=== PATIENT | female | born 1985 | race Caucasian/White ===

== ENCOUNTER 2019-12-17 09:42 | Emergency (ER) | payer OTHER ==
[~2019-12-17] VITALS: Ht 162.6 cm; Wt 74.8 kg
[2019-12-17 10:20] VITALS: BP_SYST 128
--- NOTE | 2019-12-17 10:30 | NUR ---
Patient to ER bed 6 to gown for evaluation. Side rails up.
[2019-12-17] MEDS ORDERED: NACL 0.9% 1,000 ML IV ONE (10:46)
--- NOTE | 2019-12-17 10:48 | NUR ---
Dr. Vásquez at bedside for evaluation
--- NOTE | 2019-12-17 10:50 | NUR ---
Patient presents to ER C/O abdominal pain. Patient A&Ox4, skin pink and warm, afebrile, ambulatory to ER, pain 9/10, nausea, denies V/D. Patient states she has had cold with cough x3 days, abdominal pain with nausea & diarrhea since last night. Pt seen in UC dx: bronchitis
[2019-12-17] MEDS ORDERED: KETOROLAC TROMETHAMINE 30 MG VIAL IVP ONE (11:00)
[2019-12-17] MEDS ORDERED: ONDANSETRON HCL 4 MG/2 ML VIAL IVP ONE (11:00)
--- NOTE | 2019-12-17 11:10 | NUR ---
# 20 gauge angiocath placed to right AC. Use of asceptic technique. Opsite placed over site. Blood return noted. Blood for lab drawn from site. Flushed with 10 cc of normal saline. No evidence of infiltration noted. Patient tolerated well.
[2019-12-17 11:23] LABS: BASOPHILS % (AUTO) 0.2 % (0.0-2.0); EOSINOPHILS # (AUTO) 0.1 K/uL (0.0-0.4); EOSINOPHILS % (AUTO) 0.7 % (0.0-4.0); HEMATOCRIT 40.5 % (36-48); LYMPHOCYTES # (AUTO) 0.5 K/uL (1.0-5.5); LYMPHOCYTES % (AUTO) 5.9 % (20.5-51.5); MEAN CORPUSCULAR HEMOGLOBIN 31 pg (27-31); MEAN CORPUSCULAR HGB CONC 35 % (32-36); MEAN CORPUSCULAR VOLUME 90 fL (79.0-98.0); MONOCYTES # (AUTO) 0.4 K/uL (0.0-1.0); MONOCYTES % (AUTO) 4.4 % (1.7-9.3); NEUTROPHILS # (AUTO) 7.9 K/uL (1.8-7.7); NEUTROPHILS % (AUTO) 88.8 % (40.0-70.0); PLATELET COUNT (AUTO) 222 K/uL (130-430); RED BLOOD CELL COUNT(AUTO) 4.52 MIL/uL (4.2-6.2); RED CELL DISTRIBUTION WIDTH 13.3 % (9.0-15.0)
[2019-12-17 11:37] LABS: CALCIUM 8.8 mg/dL (8.4-11.0); CREATININE 0.79 mg/dL (0.55-1.30); POTASSIUM 3.4 mmol/L (3.5-5.1)
[2019-12-17 11:43] LABS: TOTAL BILIRUBIN 0.5 mg/dL (0.0-1.0)
--- NOTE | 2019-12-17 12:00 | NUR ---
Patient sitting-up in [facility] awake & alert.
[2019-12-17 14:00] VITALS: BP_SYST 115
--- NOTE | 2019-12-17 14:00 | NUR ---
Patient given written and verbal discharge instructions and verbalizes understanding. ER MD discussed with patient the results and treatment provided. Patient in stable condition. ID arm band removed. IV catheter removed intact and dressing applied, no active bleeding. Rx of Promethazine, zofran, tramadol given. Patient educated on pain management and to follow up with PMD. Pain Scale 6/10 tolerable for patient. Opportunity for questions provided and answered. Medication side effect fact sheet provided.
== END 2019-12-17 14:00 | disposition home or self-care (01) ==
LOC: SED 09:42
DX: R19.7 Diarrhea, unspecified (principal); R11.10 Vomiting, unspecified
CPT/HCPCS: 36415; 74021; 80053; 81002; 81025; 83690; 85025; 86710; 96361; 96374; 96375; 99284; J1885; J2405; J7030